=== PATIENT | female | born 1965 | race Caucasian/White ===

== ENCOUNTER → 2018-10-27 | Outpatient (CLI) | payer SELFPAY | END | disposition home or self-care (01) | LOC: LAB EV 09:30 → LAB SHORT 09:30 | DX: N39.0 Urinary tract infection, site not specified (principal) | CPT/HCPCS: 87077; 87086; 87186 ==

== ENCOUNTER → 2020-07-11 | Outpatient (CLI) | payer SELFPAY | LOC: LAB SHORT 11:30 → LAB EV 11:30 | DX: L25.5 Unspecified contact dermatitis due to plants, except food (principal) | CPT/HCPCS: 87070; 87075; 87077; 87186; 87205 ==